=== PATIENT | female | born 1995 | race African-American/Black ===

== ENCOUNTER 2018-05-18 11:23 | Emergency (ER) | payer SELFPAY ==
--- NOTE | 2018-05-18 11:42 | ER Document Report ---
ED General - General Chief Complaint: Abdominal Pain Stated Complaint: STOMACH PAIN Time Seen by Provider: 05/18/18 11:36 Primary Care Provider: [facility] [Provider Group] - Follow up in 3-5 days ROMA CARDONA MD [Primary Care Provider] - Follow up in 3-5 days Notes: Patient is a 22-year-old female that presents to the emergency department for chief complaint of pelvic cramping and spotting. Patient reports that she was having some pelvic cramping over the past several days, and took a test on Friday of last week, and was positive, but she went to urgent care yesterday and her test was negative so she decided come the emergency department she is still having some cramping and spotting. She reports she had a short period earlier this month, which was odd for her is only 2 days, previously she had a normal. In the month of March. She denies having any dysuria, hematuria, or urinary frequency. Denies any fevers, chills, night sweats. She reports that she is had this a pelvic pain and cramping she currently rates the pain as a 6 out of 10. She has not taken any medications for this. Past Medical History: Denies chronic medical conditions Past Surgical History: Denies surgical history Social History: Admits to rare alcohol use, denies tobacco or illicit drug use. Family History: Reviewed and noncontributory for presenting illness Allergies: Reviewed, see documented allergy list. REVIEW OF SYSTEMS: Other than noted above, the 12 point review of systems was reviewed with the patient and were negative, all pertinent findings are included in the HPI. PHYSICAL EXAMINATION: Vital signs reviewed, nursing noted reviewed. GENERAL: Well-appearing, well-nourished and in no acute distress. HEAD: Atraumatic, normocephalic. EYES: Eyes appear normal, extraocular movements intact, sclera anicteric, conjunctiva are normal. ENT: nares patent, oropharynx clear without exudates. Moist mucous membranes. NECK: Normal range of motion, supple without lymphadenopathy LUNGS: Breath sounds clear to auscultation bilaterally and equal. No wheezes rales or rhonchi. HEART: Regular rate and rhythm without murmurs ABDOMEN: Soft, nontender, normoactive bowel sounds. No rebound, guarding, or rigidity. No masses appreciated. EXTREMITIES: Nontender, good range of motion, no pitting or edema. NEUROLOGICAL: No focal neurological deficits. Moves all extremities spontaneously Motor and sensory grossly intact on exam. PSYCH: Normal mood, normal affect. SKIN: Warm, Dry, normal turgor, no rashes or lesions noted on exposed skin TRAVEL OUTSIDE OF THE [place] IN LAST 30 DAYS: No - Related Data Allergies/Adverse Reactions: No Known Allergies Allergy (Unverified 05/18/18 11:29) Past Medical History - Social History Smoking Status: Never Smoker Chew tobacco use (# tins/day): No Frequency of alcohol use: Occasional Drug Abuse: None Family History: Reviewed & Not Pertinent Patient has suicidal ideation: No Patient has homicidal ideation: No Renal/ Medical History: Denies: Hx Peritoneal Dialysis Physical Exam - Vital signs Vitals: Temp Pulse Resp BP Pulse Ox 98.5 F 70 18 139/79 H 99 05/18/18 11:30 05/18/18 11:30 05/18/18 11:30 05/18/18 11:30 05/18/18 11:30 Course - Re-evaluation Re-evalutation: Patient seen and examined vital signs reviewed. Laboratory data and imaging were ordered as appropriate for the patient's presenting symptoms and complaint, with consideration of any critical or life threatening conditions that may be associated with their obtained history and exam as noted above. Patient was treated with Tylenol and Reglan for her nausea and pain Results were reviewed when available and demonstrated negative hCG testing, and negative ultrasound, good flow to the ovaries bilaterally The patient was re-evaluated and was stable Evaluation was most consistent with possible miscarriage, and spotting afterwards, her urinalysis was suggestive of a UTI, will treat with Keflex for 5 days. Results were discussed with the patient at this point, after careful consideration I feel that that patient can be discharged from the emergency department, the patient was educated treatments and reasons to return to the emergency department based on their presumed diagnosis as noted above, they were advised to followup with a primary care physician in 2-3 days. Patient was agreeable to plan of care. *Note is created using voice recognition software and may contain spelling, syntax or grammatical errors. Laboratory 05/18/18 05/18/18 05/18/18 11:50 12:02 12:02 Beta HCG, Quant < 2.39 Total Beta HCG NEGATIVE Urine Color YELLOW Urine Appearance SLIGHTLY-CLOUDY Urine pH 6.0 Ur Specific [place] 1.017 Urine Protein NEGATIVE Urine Glucose (UA) NEGATIVE Urine Ketones NEGATIVE Urine Blood NEGATIVE Urine Nitrite NEGATIVE Urine Bilirubin NEGATIVE Urine Urobilinogen 2.0 H Ur Leukocyte Esterase MODERATE H Urine WBC (Auto) 9 Urine RBC (Auto) 1 Urine Bacteria (Auto) TRACE Squamous Epi Cells Auto 10 Urine Mucus (Auto) MOD Urine Ascorbic Acid NEGATIVE Blood Type O POSITIVE Rhogam Indicated RHOGAM NOT INDICATED Obstetrics Ultrasound 05/18/18 11:42 IMPRESSION: There is no intrauterine gestation at this time. Follow-up as clinically indicated. - Vital Signs Vital signs: Temp Pulse Resp BP Pulse Ox 98.5 F 70 16 139/79 H 99 05/18/18 11:30 05/18/18 11:30 05/18/18 11:34 05/18/18 11:30 05/18/18 11:30 - Laboratory Laboratory results interpreted by me: 05/18/18 11:50 Urine Urobilinogen 2.0 H Ur Leukocyte Esterase MODERATE H Discharge - Discharge Clinical Impression: Pelvic cramping UTI (urinary tract infection) Qualifiers: Urinary tract infection type: site unspecified Hematuria presence: without hematuria Qualified Code(s): N39.0 - Urinary tract infection, site not specified Condition: Stable Disposition: HOME, SELF-CARE Instructions: Urinary Tract Infection ([facility]) Additional Instructions: Please complete the entire course of antibiotics, and please follow-up with an SNUFF BLENDER, referral has been given with your paperwork today. If your symptoms worsen or are not improving and over the next 7 days, you can always return to the emergency department. Prescriptions: Cephalexin Monohydrate [Keflex 500 mg Capsule] 500 mg PO BID 5 Days #10 capsule Referrals: ROMA CARDONA MD [Primary Care Provider] - Follow up in 3-5 days [facility] [Provider Group] - Follow up in 3-5 days
[2018-05-18] MEDS ORDERED: METOCLOPRAMIDE HCL 10 MG TABLET PO ONE (11:43)
[2018-05-18] MEDS ORDERED: ACETAMINOPHEN 325 MG TABLET PO ONE (11:43)
[2018-05-18 12:31] LABS: APPEARANCE,URINE SLIGHTLY-CLOUDY; BILIRUBIN,URINE NEGATIVE (NEGATIVE); COLOR,URINE YELLOW; GLUCOSE, URINE NEGATIVE (NEGATIVE); KETONES,URINE NEGATIVE (NEGATIVE); LEUKOCYTE ESTERASE,URINE MODERATE (NEGATIVE); NITRITE,URINE NEGATIVE (NEGATIVE); PROTEIN,URINE NEGATIVE (NEGATIVE); URINE SPECIFIC GRAVITY 1.017
--- NOTE | 2018-05-18 12:53 | RADIOLOGY REPORT (SQ) ---
EXAM DESCRIPTION: U/S OB TRANSVAGINAL W/O DOP COMPLETED DATE/TIME: 05/18/2018 12:45 pm REASON FOR STUDY: , spotting COMPARISON: None. TECHNIQUE: Transvaginal static and realtime grayscale images acquired of the pelvis. Additional gaby cted spectral and color Doppler images recorded. All images stored on PACs. bHCG: Pending CLINICAL DATES: LMP 04/13/2018. 5 weeks 0 days. LIMITATIONS: None. FINDINGS: No intrauterine gestation is present at this time. UTERUS: No masses or anomalies. 7.5 x 5.6 x 4 cm. CERVICAL LENGTH: 3.1 cm. Closed. RIGHT ADNEXA: Normal ovary with normal vascular flow. 4 x 3.2 x 3 cm. No adnexal free fluid. No adnexal masses. LEFT ADNEXA: Normal ovary with normal vascular flow. 3.5 x 2.3 x 1.7 cm. There is a 2.1 x 1.7 x 1.8 cm cyst. No adnexal free fluid. No adnexal masses. FREE FLUID: None. OTHER: Endometrium measures 3 mm. IMPRESSION: There is no intrauterine gestation at this time. Follow-up as clinically indicated. TECHNICAL DOCUMENTATION: JOB ID: [id number] [employer]- All Rights Reserved rev Reading location - IP/workstation name: [email or web address]
[2018-05-18 13:43] VITALS: BP 104/68
== END 2018-05-18 13:44 | disposition home or self-care (01) ==
LOC: ER 11:23
DX: N39.0 Urinary tract infection, site not specified (principal); R10.2 Pelvic and perineal pain
CPT/HCPCS: 36415; 76817; 81001; 84702; 86900; 86901; 87086; 99284

== ENCOUNTER 2018-07-01 12:48 | Emergency (ER) | payer OTHER ==
--- NOTE | 2018-07-01 13:57 | ER Document Report ---
ED General - General Chief Complaint: Abdominal Pain Stated Complaint: ABDOMINAL PAIN Time Seen by Provider: 07/01/18 13:51 Mode of Arrival: Ambulatory Information source: Patient Notes: Patient presents to the emergency department with complaints of severe abdominal pain that started while she is at work lasted approximately 30 minutes and went away. She denies fever vomiting diarrhea. She denies past medical history of injury Or chronic illness. She reports this happened to her one time and it went away. She reports the pain was 10 out of 10 will EMS picked her up but is now 3/5. TRAVEL OUTSIDE OF THE [place] IN LAST 30 DAYS: No - HPI Onset: Just prior to arrival Quality of pain: Achy Severity: Mild Pain Level: 3 Associated symptoms: None. denies: Diarrhea, Nausea, Vomiting Exacerbated by: Denies Relieved by: Denies Similar symptoms previously: No Recently seen / treated by doctor: No - Related Data Allergies/Adverse Reactions: No Known Allergies Allergy (Verified 07/01/18 12:50) Past Medical History - General Information source: Patient Last Menstrual Period: 05/26/18 - Social History Smoking Status: Never Smoker Cigarette use (# per day): No Frequency of alcohol use: Occasional Family History: Reviewed & Not Pertinent Patient has suicidal ideation: No Patient has homicidal ideation: No - Medical History Medical History: Negative Renal/ Medical History: Denies: Hx Peritoneal Dialysis Surgical Hx: Negative Review of Systems - Review of Systems Notes: Review HPI for review of systems., All other systems negative Physical Exam - Vital signs Vitals: Temp Pulse Resp BP Pulse Ox 98.3 F 71 20 115/61 98 07/01/18 12:56 07/01/18 12:56 07/01/18 12:56 07/01/18 12:56 07/01/18 12:56 - Notes Notes: PHYSICAL EXAMINATION: GENERAL: Well-appearing and in no acute distress HEAD: Atraumatic, normocephalic. EYES: Pupils equal round, extraocular movements intact, sclera anicteric, conjunctiva are normal. ENT: nares patent, oropharynx clear without exudates. Moist mucous membranes. NECK: Normal range of motion, supple without lymphadenopathy LUNGS: CTAB and equal. No wheezes rales or rhonchi. HEART: Regular rate and rhythm without murmurs ABDOMEN: Soft, no tenderness. No guarding, no rebound EXTREMITIES: Normal range of motion, no pitting edema. No cyanosis. NEUROLOGICAL: Cranial nerves grossly intact. Normal sensory/motor exams. PSYCH: Normal mood, normal affect. SKIN: Warm, Dry, normal turgor, no rashes or lesions noted Course - Re-evaluation Re-evalutation: 07/01/18 15:42 Labs unremarkable KUB shows mild gas. Patient instructed on Gas-X. Patient instructed on the importance of follow-up with primary care or return to the emergency department for further further symptoms she verbalized understanding. pt denies pain - Vital Signs Vital signs: Temp Pulse Resp BP Pulse Ox 99.0 F 52 L 19 139/58 H 98 07/01/18 15:56 07/01/18 15:56 07/01/18 15:56 07/01/18 15:56 07/01/18 15:56 - Laboratory Result Diagrams: 07/01/18 14:14 07/01/18 14:14 Laboratory results interpreted by me: 07/01/18 07/01/18 14:14 14:14 Glucose 72 L Urine Blood LARGE H Urine Urobilinogen 2.0 H Ur Leukocyte Esterase TRACE H - Diagnostic Test Radiology reviewed: Image reviewed, Reports reviewed - mildly gas Discharge - Discharge Clinical Impression: Abdominal gas pain Condition: Stable Disposition: HOME, SELF-CARE Instructions: Abdominal Pain ([facility]) Additional Instructions: *You have been evaluated for abdominal pain, gas *Take medication as directed *Follow up with a primary care provider within 3 days *Return to ED for worsening condition, changes, needs *Return to ED if not better in 24 hours Prescriptions: Simethicone [Gas-X] 125 mg PO ASDIR PRN #1 tab.chew PRN Reason: Forms: Return to Work
[2018-07-01 14:30] LABS: ABSOLUTE EOSINOPHILS # (AUTO) 0.1 10^3/uL (0.0-0.6); ABSOLUTE LYMPHOCYTES (AUTO) 2.5 10^3/uL (0.5-4.7); ABSOLUTE MONOCYTES (AUTO) 0.7 10^3/uL (0.1-1.4); ABSOLUTE NEUT (AUTO) 3.5 10^3/uL (1.7-8.2); BASOPHILS % (AUTO) 0.6 % (0-2); EOSINOPHILS % (AUTO) 1.3 % (0-6); HEMATOCRIT 40.1 % (36.0-47.0); HEMOGLOBIN 13.7 g/dL (12.0-15.5); LYMPHOCYTES % (AUTO) 36.2 % (13-45); MEAN CORPUSCULAR HEMOGLOBIN 31.6 pg (27.0-33.4); MEAN CORPUSCULAR HGB CONC 34.3 g/dL (32.0-36.0); MEAN CORPUSCULAR VOLUME 92 fl (80-97); MONOCYTES % (AUTO) 9.6 % (3-13); PLATELET COUNT 277 10^3/uL (150-450); RED BLOOD COUNT 4.36 10^6/uL (3.72-5.28); RED CELL DISTRIBUTION WIDTH 12.4 % (11.5-14.0); SEGMENTED NEUTROPHILS % (AUTO) 52.3 % (42-78); TOTAL CELLS COUNTED % (AUTO) 100 %; WHITE BLOOD COUNT 6.8 10^3/uL (4.0-10.5)
--- NOTE | 2018-07-01 14:34 | RADIOLOGY REPORT (SQ) ---
EXAM DESCRIPTION: KUB/ABDOMEN (SINGLE VIEW) COMPLETED DATE/TIME: 07/01/2018 2:22 pm REASON FOR STUDY: abd pain COMPARISON: None. NUMBER OF VIEWS: One view. TECHNIQUE: Supine radiographic image of the abdomen acquired. LIMITATIONS: None. FINDINGS: BOWEL GAS PATTERN: Mildly gas distended stomach. No additional evidence of pathologically dilated loops of bowel. Formed stool throughout the colon. CALCIFICATIONS: No suspicious calcifications. SOFT TISSUES: No gross mass or suggestion of organomegaly. HARDWARE: None in the abdomen. BONES: No acute fracture. No worrisome bone lesions. OTHER: No other significant finding. IMPRESSION: Mildly gas dilated stomach. Otherwise, unremarkable abdominal radiographs. TECHNICAL DOCUMENTATION: JOB ID: [id number] [employer]- All Rights Reserved Reading location - IP/workstation name: [email or web address]
[2018-07-01 14:50] LABS: ALANINE AMINOTRANSFERASE 26 U/L (9-52); ALBUMIN 4.3 g/dL (3.5-5.0); ALKALINE PHOSPHATASE 70 U/L (38-126); ANION GAP 10 (5-19); ASPARTATE AMINO TRANSFERASE 20 U/L (14-36); BILIRUBIN,DIRECT 0.2 mg/dL (0.0-0.4); BILIRUBIN,TOTAL 0.4 mg/dL (0.2-1.3); BLOOD UREA NITROGEN 9 mg/dL (7-20); CALCIUM 9.3 mg/dL (8.4-10.2); CARBON DIOXIDE 26 mmol/L (22-30); CHLORIDE 106 mmol/L (98-107); GLUCOSE 72 mg/dL (75-110); POTASSIUM 3.9 mmol/L (3.6-5.0); SODIUM 141.9 mmol/L (137-145); TOTAL PROTEIN 7.6 g/dL (6.3-8.2)
[2018-07-01 15:04] LABS: AMORPHOUS SEDIMENT,URINE TRACE /HPF; APPEARANCE,URINE CLOUDY; BILIRUBIN,URINE NEGATIVE (NEGATIVE); COLOR,URINE YELLOW; GLUCOSE, URINE NEGATIVE (NEGATIVE); KETONES,URINE NEGATIVE (NEGATIVE); LEUKOCYTE ESTERASE,URINE TRACE (NEGATIVE); NITRITE,URINE NEGATIVE (NEGATIVE); PROTEIN,URINE NEGATIVE (NEGATIVE); URINE SPECIFIC GRAVITY 1.023
[2018-07-01 15:59] VITALS: BP 139/58
== END 2018-07-01 15:58 | disposition home or self-care (01) ==
LOC: ER 12:48
DX: R14.1 Gas pain (principal)
CPT/HCPCS: 36415; 74018; 80053; 81001; 81025; 85025; 99284

== ENCOUNTER 2018-11-17 13:52 | Emergency (ER) | payer OTHER ==
--- NOTE | 2018-11-17 14:21 | ER Document Report ---
ED Medical Screen (RME) - General Chief Complaint: Lower Abdominal Pain Stated Complaint: ABDOMINAL PAIN Time Seen by Provider: 11/17/18 14:18 Mode of Arrival: Medic Information source: Patient Notes: 23-year-old female presents emergency department with complaints of lower abdominal pain that started at 5:00 this morning while she was at work. Denies fever vomiting diarrhea. Denies pain with void. Denies past medical history of chronic abdominal concerns. Denies trauma. Denies vaginal discharge. Lower abdomen pain to touch. Last bowel movement was couple days ago. I have greeted and performed a rapid initial assessment of this patient. A comprehensive ED assessment and evaluation of the patient, analysis of test results and completion of the medical decision making process will be conducted by additional ED providers. Dictation of this chart was performed using voice recognition software; therefore, there may be some unintended grammatical errors. TRAVEL OUTSIDE OF THE [place] IN LAST 30 DAYS: No - Related Data Allergies/Adverse Reactions: No Known Allergies Allergy (Verified 11/17/18 14:12) Past Medical History - Social History Chew tobacco use (# tins/day): No Frequency of alcohol use: Social Drug Abuse: None Renal/ Medical History: Denies: Hx Peritoneal Dialysis Physical Exam - Vital signs Vitals: Temp Pulse Resp BP Pulse Ox 98.0 F 84 20 121/61 98 11/17/18 14:03 11/17/18 14:03 11/17/18 14:03 11/17/18 14:03 11/17/18 14:03 Course - Vital Signs Vital signs: Temp Pulse Resp BP Pulse Ox 98.0 F 84 20 121/61 98 11/17/18 14:03 11/17/18 14:03 11/17/18 14:03 11/17/18 14:03 11/17/18 14:03
[2018-11-17 15:02] LABS: ABSOLUTE EOSINOPHILS # (AUTO) 0.1 10^3/uL (0.0-0.6); ABSOLUTE LYMPHOCYTES (AUTO) 2.8 10^3/uL (0.5-4.7); ABSOLUTE MONOCYTES (AUTO) 0.4 10^3/uL (0.1-1.4); ABSOLUTE NEUT (AUTO) 3.3 10^3/uL (1.7-8.2); BASOPHILS % (AUTO) 0.7 % (0-2); EOSINOPHILS % (AUTO) 0.9 % (0-6); HEMATOCRIT 38.4 % (36.0-47.0); HEMOGLOBIN 13.3 g/dL (12.0-15.5); LYMPHOCYTES % (AUTO) 42.2 % (13-45); MEAN CORPUSCULAR HEMOGLOBIN 31.5 pg (27.0-33.4); MEAN CORPUSCULAR HGB CONC 34.7 g/dL (32.0-36.0); MEAN CORPUSCULAR VOLUME 91 fl (80-97); MONOCYTES % (AUTO) 6.5 % (3-13); PLATELET COUNT 292 10^3/uL (150-450); RED BLOOD COUNT 4.22 10^6/uL (3.72-5.28); RED CELL DISTRIBUTION WIDTH 12.5 % (11.5-14.0); SEGMENTED NEUTROPHILS % (AUTO) 49.7 % (42-78); TOTAL CELLS COUNTED % (AUTO) 100 %; WHITE BLOOD COUNT 6.7 10^3/uL (4.0-10.5)
[2018-11-17 15:15] LABS: APPEARANCE,URINE SLIGHTLY-CLOUDY; BILIRUBIN,URINE NEGATIVE (NEGATIVE); COLOR,URINE YELLOW; GLUCOSE, URINE NEGATIVE (NEGATIVE); KETONES,URINE NEGATIVE (NEGATIVE); LEUKOCYTE ESTERASE,URINE SMALL (NEGATIVE); NITRITE,URINE NEGATIVE (NEGATIVE); PROTEIN,URINE NEGATIVE (NEGATIVE); URINE SPECIFIC GRAVITY 1.024
[2018-11-17 15:28] LABS: ALBUMIN 4.4 g/dL (3.5-5.0); ALKALINE PHOSPHATASE 71 U/L (38-126); ANION GAP 8 (5-19); ASPARTATE AMINO TRANSFERASE 20 U/L (14-36); BILIRUBIN,DIRECT 0.1 mg/dL (0.0-0.4); BILIRUBIN,TOTAL 0.4 mg/dL (0.2-1.3); BLOOD UREA NITROGEN 13 mg/dL (7-20); CALCIUM 9.6 mg/dL (8.4-10.2); CARBON DIOXIDE 28 mmol/L (22-30); CHLORIDE 104 mmol/L (98-107); GLUCOSE 91 mg/dL (75-110); POTASSIUM 4.1 mmol/L (3.6-5.0); TOTAL PROTEIN 7.7 g/dL (6.3-8.2)
--- NOTE | 2018-11-17 15:52 | RADIOLOGY REPORT (SQ) ---
EXAM DESCRIPTION: KUB/ABDOMEN (SINGLE VIEW) COMPLETED DATE/TIME: 11/17/2018 3:40 pm REASON FOR STUDY: abd pain COMPARISON: KUB from 07/01/2018. NUMBER OF VIEWS: One view. TECHNIQUE: Supine radiographic image of the abdomen acquired. LIMITATIONS: None. FINDINGS: BOWEL GAS PATTERN: Nonobstructive bowel gas pattern. There is no pneumatosis or portal ve nous gas. CALCIFICATIONS: No calcifications. SOFT TISSUES: No abnormality. HARDWARE: None in the abdomen. BONES: No acute findings. OTHER: No other finding. IMPRESSION: Nonobstructive bowel gas pattern. TECHNICAL DOCUMENTATION: JOB ID: [id number] [employer]- All Rights Reserved Reading location - IP/workstation name: [email or web address]
[2018-11-17] MEDS ORDERED: IBUPROFEN 800 MG TABLET PO ONE (16:26)
--- NOTE | 2018-11-17 16:27 | ER Document Report ---
HPI - HPI Patient complains to provider of: Lower pelvic pain Time Seen by Provider: 11/17/18 14:18 Onset: This morning Onset/Duration: Gradual Quality of pain: Achy Pain Level: 3 Context: Patient presents complaining of low pelvic pain since 5:00 this morning. Patien t denies any nausea vomiting or diarrhea. Patient denies any fever urinary symptoms vaginal bleeding or discharge. Associated Symptoms: Other - Lower pelvic pain. denies: Fever, Nausea, Vomiting Exacerbated by: Denies Relieved by: Denies Similar symptoms previously: No Recently seen / treated by doctor: No - ROS ROS below otherwise negative: Yes Systems Reviewed and Negative: Yes All other systems reviewed and negative - CONSTITUTIONAL Constitutional: DENIES: Fever - GASTROINTESTINAL Gastrointestinal: REPORTS: Abdominal Pain. DENIES: Nausea - URINARY Urinary: DENIES: Dysuria, Urgency, Frequency - REPRODUCTIVE LMP: nexplanon/ LMP April Reproductive: DENIES: :, Abnormal bleeding / discharge - MUSCULOSKELETAL Musculoskeletal: DENIES: Back Pain - DERM Skin Color: Normal Skin Problems: None Past Medical History - General Information source: Patient - Social History Smoking Status: Never Smoker Chew tobacco use (# tins/day): No Frequency of alcohol use: Social Drug Abuse: None Occupation: Call center Family History: Reviewed & Not Pertinent Patient has suicidal ideation: No Patient has homicidal ideation: No - Medical History Medical History: Negative Renal/ Medical History: Denies: Hx Peritoneal Dialysis Surgical Hx: Negative Vertical Provider Document - CONSTITUTIONAL Agree With Documented VS: Yes Exam Limitations: No Limitations General Appearance: WD/WN, No Apparent Distress - INFECTION CONTROL TRAVEL OUTSIDE OF THE [place] 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 negative: Adnexal Pain-Right, Adnexal Pain-Left - BACK Back: Normal Inspection. negative: CVA Tenderness-Right, CVA Tenderness-Left - MUSCULOSKELETAL/EXTREMETIES Musculoskeletal/Extremeties: ANGELITO MAR - NEURO Level of Consciousness: Awake, Alert, Appropriate Motor/Sensory: No Motor Deficit - DERM Integumentary: Warm, Dry, No Rash Course - Vital Signs Vital signs: Temp Pulse Resp BP Pulse Ox 98.0 F 84 20 121/61 98 11/17/18 14:03 11/17/18 14:03 11/17/18 14:03 11/17/18 14:03 11/17/18 14:03 - Laboratory Result Diagrams: 11/17/18 14:30 11/17/18 14:30 Laboratory results interpreted by me: 11/17/18 14:30 Urine Blood MODERATE H Urine Urobilinogen 2.0 H Ur Leukocyte Esterase SMALL H Urine Ascorbic Acid 40 H 11/17/18 17:46 Labs- Entire Visit 11/17/18 11/17/18 11/17/18 14:30 14:30 14:30 WBC 6.7 RBC 4.22 Hgb 13.3 Hct 38.4 MCV 91 MCH 31.5 MCHC 34.7 RDW 12.5 Plt Count 292 Lymph % (Auto) 42.2 [place] % (Auto) 6.5 Eos % (Auto) 0.9 Baso % (Auto) 0.7 Absolute Neuts (auto) 3.3 Absolute Lymphs (auto) 2.8 Absolute Monos (auto) 0.4 Absolute Eos (auto) 0.1 Absolute Basos (auto) 0.0 Seg Neutrophils % 49.7 Sodium 140.2 Potassium 4.1 Chloride 104 Carbon Dioxide 28 Anion Gap 8 BUN 13 Creatinine 0.84 Est GFR ( Amer) > 60 Est GFR (MDRD) Non-Af > 60 Glucose 91 Calcium 9.6 Total Bilirubin 0.4 Direct Bilirubin 0.1 Neonat Total Bilirubin Not Reportable Neonat Direct Bilirubin Not Reportable Neonat Indirect Bili Not Reportable AST 20 ALT 11 Alkaline Phosphatase 71 Total Protein 7.7 Albumin 4.4 Urine Color YELLOW Urine Appearance SLIGHTLY-CLOUDY Urine pH 6.0 Ur Specific [place] 1.024 Urine Protein NEGATIVE Urine Glucose (UA) NEGATIVE Urine Ketones NEGATIVE Urine Blood MODERATE H Urine Nitrite NEGATIVE Urine Bilirubin NEGATIVE Urine Urobilinogen 2.0 H Ur Leukocyte Esterase SMALL H Urine WBC (Auto) 10 Urine RBC (Auto) 6 Urine Bacteria (Auto) 1+ Squamous Epi Cells Auto 7 Urine Mucus (Auto) FEW Urine Ascorbic Acid 40 H Urine HCG, Qual NEGATIVE Bacteria (Wet Prep) Trichomonas (Wet Prep) Vaginal WBC Vaginal RBC Vaginal Yeast 11/17/18 16:51 WBC RBC Hgb Hct MCV MCH MCHC RDW Plt Count Lymph % (Auto) [place] % (Auto) Eos % (Auto) Baso % (Auto) Absolute Neuts (auto) Absolute Lymphs (auto) Absolute Monos (auto) Absolute Eos (auto) Absolute Basos (auto) Seg Neutrophils % Sodium Potassium Chloride Carbon Dioxide Anion Gap BUN Creatinine Est GFR ( Amer) Est GFR (MDRD) Non-Af Glucose Calcium Total Bilirubin Direct Bilirubin Neonat Total Bilirubin Neonat Direct Bilirubin Neonat Indirect Bili AST ALT Alkaline Phosphatase Total Protein Albumin Urine Color Urine Appearance Urine pH Ur Specific [place] Urine Protein Urine Glucose (UA) Urine Ketones Urine Blood Urine Nitrite Urine Bilirubin Urine Urobilinogen Ur Leukocyte Esterase Urine WBC (Auto) Urine RBC (Auto) Urine Bacteria (Auto) Squamous Epi Cells Auto Urine Mucus (Auto) Urine Ascorbic Acid Urine HCG, Qual Bacteria (Wet Prep) 3+ BACTERIA SEEN Trichomonas (Wet Prep) NO TRICHOMONAS SEEN Vaginal WBC FEW WBCS SEEN Vaginal RBC FEW RBCS SEEN Vaginal Yeast BUDDING YEAST SEEN Discharge - Discharge Clinical Impression: PID (acute pelvic inflammatory disease), Pelvic pain UTI (urinary tract infection) Qualifiers: Urinary tract infection type: site unspecified Hematuria presence: with hematuria Qualified Code(s): N39.0 - Urinary tract infection, site not specified Condition: Stable Disposition: HOME, SELF-CARE Instructions: Cephalexin ([facility]), Doxycycline ([facility]), Metronidazole ([facility]), Urinary Tract Infection ([facility]), Vaginal Yeast Infection ([facility]) Additional Instructions: Return immediately for any new or worsening symptoms Followup with your primary care provider, call tomorrow to make a followup appointment Urine culture is pending, will call if you need any different treatment Prescriptions: Fluconazole [Diflucan] 150 mg PO ONCE PRN #1 tablet PRN Reason: Doxycycline Hyclate 100 mg PO BID #28 capsule Metronidazole [Flagyl 500 mg Tablet] 500 mg PO BID #14 tablet Cephalexin Monohydrate [Keflex 500 mg Capsule] 500 mg PO BID 5 Days capsule Forms: Return to Work Referrals: [facility] [Provider Group] - Follow up as needed
[2018-11-17] MEDS ORDERED: CEFTRIAXONE INJ 1000 MG VIAL IM ONE (16:54)
[2018-11-17] MEDS ORDERED: DOXYCYCLINE HYCLATE 100 MG TABLET PO ONE (16:54)
[2018-11-17] MEDS ORDERED: LIDOCAINE 1% INJ (10 MG/ML) 10 ML MDV INJ ONE (16:56)
[2018-11-17 17:08] LABS: BACTERIA (WET MOUNT) 3+ BACTERIA SEEN; RBCS (WET MOUNT) FEW RBCS SEEN; T.VAGINALIS (WET MOUNT) NO TRICHOMONAS SEEN; WBCS (WET MOUNT) FEW WBCS SEEN; YEAST (WET MOUNT) BUDDING YEAST SEEN
[2018-11-17 17:58] VITALS: BP 120/74
[2018-11-17 18:38] LABS: CHLAM PCR DETECTED (NOT DETECT)
== END 2018-11-17 17:59 | disposition home or self-care (01) ==
LOC: ER 13:52
DX: N73.9 Female pelvic inflammatory disease, unspecified (principal); N39.0 Urinary tract infection, site not specified; R31.9 Hematuria, unspecified; R10.2 Pelvic and perineal pain
CPT/HCPCS: 99284; 96372; 36415; 87086; 87210; 85025; 81025; 80053; 81001; 87491; 87591; 74018; J0696

== ENCOUNTER 2019-12-15 16:33 | Emergency (ER) | payer OTHER ==
[2019-12-15] MEDS ORDERED: HYDROCODONE/ACETAMINOPHEN 5-325 MG TABLET PO ONE (17:33)
[2019-12-15] MEDS ORDERED: LIDOCAINE 1% INJ-PF (10 MG/ML) 30 ML SDV INJ ONE ×2 (17:33→20:18)
--- NOTE | 2019-12-15 17:43 | ER Document Report ---
ED Medical Screen (RME) - General Chief Complaint: Abscess Stated Complaint: ABSCESS/BACK TRAVEL OUTSIDE OF THE [place] IN LAST 30 DAYS: No - HPI Notes: 12/15/19 17:42 24-year-old female to the emergency department with complaints of a pilonidal abscess. She states it started about 3 weeks ago and has gotten progressively worse. She was seen at [facility] over the weekend and then referred to general surgery. She was seen at [facility] today and sent over for incision and drainage by Dr. De La Cruz. Per charge nurse, Dr. De La Cruz states that the abscess should be drained and patient should be put on oral antibiotics and follow-up in his clinic in 1 week. Patient admits to some subjective fevers and chills. Admits to some slight nausea. Hurts very much to sit down. She states that she has had this about 3 other times. I performed a brief medical screening exam on the patient determined that the patient needs further evaluation and management by main side provider. I have placed initial orders to help expedite care. - Related Data Allergies/Adverse Reactions: No Known Allergies Allergy (Verified 11/17/18 14:12) Past Medical History Renal/ Medical History: Denies: Hx Peritoneal Dialysis Physical Exam - Vital signs Vitals: Temp Pulse Resp BP Pulse Ox 99.9 F 117 H 16 118/71 98 12/15/19 16:54 12/15/19 16:54 12/15/19 16:54 12/15/19 16:54 12/15/19 16:54 Course - Vital Signs Vital signs: Temp Pulse Resp BP Pulse Ox 99.9 F 117 H 16 118/71 98 12/15/19 16:54 12/15/19 16:54 12/15/19 16:54 12/15/19 16:54 12/15/19 16:54
--- NOTE | 2019-12-15 19:39 | ER Document Report ---
ED Skin Rash/Insect Bite/Abscs - General Chief Complaint: Abscess Stated Complaint: ABSCESS/BACK Time Seen by Provider: 12/15/19 19:38 Mode of Arrival: Ambulatory Information source: Patient Notes: ED Medical Screen ([email or web address]) - General Chief Complaint: Abscess Stated Complaint: ABSCESS/BACK TRAVEL OUTSIDE OF THE [place] IN LAST 30 DAYS: No - HPI Notes: 12/15/19 17:42 24-year-old female to the emergency department with complaints of a pilonidal abscess. She states it started about 3 weeks ago and has gotten progressively worse. She was seen at [facility] over the weekend and then referred to general surgery. She was seen at [facility] today and sent over for incision and drainage by Dr. De La Cruz. Per charge nurse, Dr. De La Cruz states that the abscess should be drained and patient should be put on oral antibiotics and follow-up in his clinic in 1 week. Patient admits to some subjective fevers and chills. Admits to some slight nausea. Hurts very much to sit down. She states that she has had this about 3 other times. I performed a brief medical screening exam on the patient determined that the patient needs further evaluation and management by main side provider. I have placed initial orders to help expedite care. MY NOTES 24-year-old black female arrives with chief complaint of pilonidal cyst abscess. This occurred 3 weeks ago and has worsened over the weekend. She was seen at [facility] and then referred to [facility] for I&D. Patient saw Dr. De La Cruz today who pushed on it and the patient spun around and hit him and he advised taking the antibiotics and seeing him next week for incision and drainage. Patient is running low-grade temperature 100. I spoke with patient about this case. I also spoke with Dr. Alford about this case and I will performed the incision and drainage. Patient has been taking doxycycline and Zofran. Patient has had initial incision and drainage and [facility] 2017 and then [facility] in 2019. TRAVEL OUTSIDE OF THE [place] IN LAST 30 DAYS: No - HPI Patient complains to provider of: Tender/swollen area Onset: Other - x 3 weeks Severity: Moderate Pain Level: 2 Skin Character: Abscess Skin Temperature: Warm Quality of rash: Painful Identify cause: Yes - Related Data Allergies/Adverse Reactions: No Known Allergies Allergy (Verified 11/17/18 14:12) Past Medical History - General Information source: Patient, Relative - Social History Smoking Status: Never Smoker Cigarette use (# per day): No Chew tobacco use (# tins/day): No Smoking Education Provided: No Frequency of alcohol use: Occasional Drug Abuse: None Lives with: Family Family History: Reviewed & Not Pertinent Patient has suicidal ideation: No Patient has homicidal ideation: No Renal/ Medical History: Denies: Hx Peritoneal Dialysis Review of Systems - Review of Systems Constitutional: See HPI, Fever EENT: No symptoms reported Cardiovascular: No symptoms reported Respiratory: No symptoms reported Gastrointestinal: No symptoms reported Genitourinary: No symptoms reported Female Genitourinary: No symptoms reported Musculoskeletal: No symptoms reported Skin: No symptoms reported, See HPI, Lumps - Pilonidal abscess approximately 5 cm diameter with midline surgical scar that is well-healed over 1 year. Hematologic/Lymphatic: No symptoms reported Neurological/Psychological: No symptoms reported Physical Exam - Vital signs Vitals: Temp Pulse Resp BP Pulse Ox 99.9 F 117 H 16 118/71 98 12/15/19 16:54 12/15/19 16:54 12/15/19 16:54 12/15/19 16:54 12/15/19 16:54 Interpretation: Tachycardic, Febrile - General General appearance: Appears well, Alert - HEENT Head: Normocephalic, Atraumatic Eyes: Normal Pupils: PERRL - Respiratory Respiratory status: No respiratory distress Chest status: Nontender Breath sounds: Normal Chest palpation: Normal - Cardiovascular Rhythm: Regular Heart sounds: Normal auscultation Murmur: No - Abdominal Inspection: Normal Distension: No distension Bowel sounds: Normal Tenderness: Nontender Organomegaly: No organomegaly - Rectal Tenderness: Yes - I was with Andreina SCHAEFFER female - Genitourinary External exam: Normal - With Andreina SCHAEFFER female - Back Back: Normal, Nontender - Extremities General upper extremity: Normal inspection, Nontender, Normal color, Normal ROM, Normal temperature General lower extremity: Normal inspection, Nontender, Normal color, Normal ROM, Normal temperature, Normal weight bearing. No: Dulce Maria's sign - Neurological Neuro grossly intact: Yes Cognition: Normal Orientation: AAOx4 [place] Coma Scale Eye Opening: Spontaneous [place] Coma Scale Verbal: Oriented [place] Coma Scale Motor: Obeys Commands [place] Coma Scale Total: 15 Speech: Normal Motor strength normal: LUE, RUE, LLE, RLE Sensory: Normal - Psychological Associated symptoms: Normal affect, Normal mood - Skin Skin Temperature: Warm Skin Moisture: Dry Skin Color: Other - Pilonidal abscess approximately 5 cm diameter with midline s urgical scar that is well-healed over 1 year. Course - Vital Signs Vital signs: Temp Pulse Resp BP Pulse Ox 99.9 F 117 H 16 118/71 98 12/15/19 16:54 12/15/19 16:54 12/15/19 16:54 12/15/19 16:54 12/15/19 16:54 Procedures - Incision and Drainage Buttock Time completed: 21:30 Type: Simple Anesthetic type: 1% Lidocaine mL's of anesthetic: 10 I&D procedure: Shurclens applied, Iodoform packing placed Incision Method: Incision made by scalpel Amount/type of drainage: 75 ml purulent drainage jimenez in color Critical Care Note - Critical Care Note Comments: Patient tolerated incision and drainage procedure well. She woke shortly after procedure was done. Antibiotics were given IV per Andreina SCHAEFFER. Home medicines were provided by Andreina SCHAEFFER as well. Discharge - Discharge Clinical Impression: Encounter for incision and drainage procedure, Pilonidal cyst with abscess Condition: Good Disposition: HOME, SELF-CARE Instructions: Trimethoprim-Sulfa ([facility]), Cephalexin ([facility]) Additional Instructions: Follow-up with Dr. Alford or Dr. De La Cruz surgeons in their office tomorrow or next day. return to ER for surgical emergencies; keep wound clean and dry. Take medications as directed. Hold on doxycycline for now and instead take Keflex and Bactrim. Encourage fluids take nausea medicine and pain medicine as needed. Prescriptions: Sulfamethoxazole/Trimethoprim [Bactrim Ds Tablet] 1 tab PO BID #20 tablet Cephalexin Monohydrate [Keflex 500 mg Capsule] 500 mg PO BID 5 Days #20 capsule Forms: Return to Work
[2019-12-15] MEDS ORDERED: NORMAL SALINE 1000 ML 1,000 ML IV ONE (19:59)
[2019-12-15] MEDS ORDERED: PROPOFOL INJ 200 MG/20 ML VIAL IV ONE ×2 (19:59→21:36)
[2019-12-15] MEDS ORDERED: KETAMINE HCL INJ 500 MG/10 ML VIAL IV ONE (20:00)
[2019-12-15] MEDS ORDERED: CEFTRIAXONE INJ 1000 MG VIAL IV ONE (20:01)
[2019-12-15] MEDS ORDERED: METRONIDAZOLE 500 MG/NS RTU 500 MG/100 ML RTUPB IV SCH (20:30)
[2019-12-15] MEDS ORDERED: HYDROCODONE/ACETAMINOPHEN 5-325 MG (6 TAB/ER DISP) PO PRN (21:35)
[2019-12-15] MEDS ORDERED: ONDANSETRON ODT 4 MG TAB (6 TAB/ER DISP) PO PRN (21:36)
[2019-12-15 23:55] VITALS: BP 110/62
[2019-12-16 00:15] LABS: HEMATOCRIT 30.9 % (36.0-47.0); HEMOGLOBIN 10.9 g/dL (12.0-15.5); MEAN CORPUSCULAR HGB CONC 35.3 g/dL (32.0-36.0); MEAN CORPUSCULAR VOLUME 88 fl (80-97); PLATELET COUNT 445 10^3/uL (150-450); RED BLOOD COUNT 3.51 10^6/uL (3.72-5.28); RED CELL DISTRIBUTION WIDTH 11.8 % (11.5-14.0)
[2019-12-16 00:30] LABS: ABSOLUTE LYMPHOCYTES# (MANUAL) 4.1 10^3/uL (0.5-4.7); ABSOLUTE MONOCYTES # (MANUAL) 1.2 10^3/uL (0.1-1.4); BASOPHILS % (MANUAL) 0 % (0-2); EOSINOPHILS % (MANUAL) 1 % (0-6); LYMPHOCYTES % (MANUAL) 27 % (13-45); MONOCYTES % (MANUAL) 8 % (3-13); SEGMENTED NEUTROPHILS % (MAN) 64 % (42-78); TOTAL CELLS COUNTED 100
[2019-12-16 00:35] LABS: PLATELET COMMENT ADEQUATE
[2019-12-16 00:44] LABS: ALBUMIN 3.2 g/dL (3.5-5.0); ALKALINE PHOSPHATASE 71 U/L (38-126); ANION GAP 9 (5-19); ASPARTATE AMINO TRANSFERASE 15 U/L (14-36); BILIRUBIN,DIRECT 0.4 mg/dL (0.0-0.4); BILIRUBIN,TOTAL 0.7 mg/dL (0.2-1.3); BLOOD UREA NITROGEN 6 mg/dL (7-20); CALCIUM 8.3 mg/dL (8.4-10.2); CARBON DIOXIDE 25 mmol/L (22-30); CHLORIDE 103 mmol/L (98-107); GLUCOSE 91 mg/dL (75-110); POTASSIUM 3.5 mmol/L (3.6-5.0); TOTAL PROTEIN 6.4 g/dL (6.3-8.2)
== END 2019-12-15 23:55 | disposition home or self-care (01) ==
LOC: ER 16:33
DX: L05.01 Pilonidal cyst with abscess (principal); R50.9 Fever, unspecified; R00.0 Tachycardia, unspecified
CPT/HCPCS: 99284; 96361; 99152; 96365; 96368; 36415; 87070; 87205; 85025; 87075; 80053; 10080; J3490 ×3; J0696; J7030; J2704; 87077

== ENCOUNTER 2019-12-22 12:19 | Day surgery (SDC) | payer OTHER ==
[~2019-12-22 12:19] MED LIST: CEFAZOLIN 2 GM/D5W RTU 2 GM/50 ML RTUPB IV ONE; CEFAZOLIN 2 GM/D5W RTU 2 GM/50 ML RTUPB IV PRN; DEXAMETHASONE SOD PHOSPHATE INJ 4 MG/1 ML VIAL ONE; FENTANYL CITRATE INJ/PF 100 MCG/2 ML AMPUL ONE; KETOROLAC TROMETHAMINE 60 MG/2 ML SDV ONE; MIDAZOLAM 2 MG/2 ML INJ ONE; ONDANSETRON HCL INJ/PF 4 MG/2 ML SDV ONE; PROPOFOL INJ 200 MG/20 ML VIAL IV ONE
[2019-12-22] MEDS ORDERED: FENTANYL CITRATE INJ/PF 100 MCG/2 ML AMPUL ONE (16:08)
[2019-12-22] MEDS ORDERED: FENTANYL CITRATE INJ/PF 100 MCG/2 ML AMPUL IV PRN ×3 (16:52)
[2019-12-22] MEDS ORDERED: DIPHENHYDRAMINE HCL 50 MG/ML VIAL IV PRN (16:52)
[2019-12-22] MEDS ORDERED: MEPERIDINE HCL/PF INJ 25 MG/1 ML DISP.SYRIN IV PRN (16:52)
[2019-12-22] MEDS ORDERED: MORPHINE SULFATE 10 MG/ML INJ IV PRN (16:52)
[2019-12-22] MEDS ORDERED: ONDANSETRON HCL INJ/PF 4 MG/2 ML SDV IV PRN (16:52)
[2019-12-22] MEDS ORDERED: LIDOCAINE 1%/EPINEPHRINE INJ 20 ML VIAL ONE (16:52)
--- NOTE | 2019-12-22 17:16 | Operative Report ---
Nonrecallable Operative Report DATE OF SURGERY: 12/22/19 PREOPERATIVE DIAGNOSIS: Infected pilonidal cyst POSTOPERATIVE DIAGNOSIS: Infected pilonidal cyst OPERATION: Incision and drainage of infected pilonidal cyst abscess SURGEON: DELMER CROWELL ANESTHESIA: GA TISSUE REMOVED OR ALTERED: Skin from the buttock COMPLICATIONS: None ESTIMATED BLOOD LOSS: 10 cc INTRAOPERATIVE FINDINGS: See note PROCEDURE: Procedure note; the patient was brought to the operating room awake alert stable condition placed on the operating table in a right lateral decubitus position. After adequate prep and drape and site verification the procedure commenced. Patient had an infected pilonidal cyst with a large subcutaneous abscess it was pointing at buttock cleft a elliptical incision was made just above the buttock cleft about 4 cm long by 2 cm wide dissection was carried out through subcutaneous tissue with Bovie cautery was markedly thickened tissue in the buttock cleft and an incision at the mid made down to the presacral fascia to gain access to a fairly large abscess cavity about 4 to 6 cm in diameter drained a large amount of purulent fluid and the loculations were digitalized. The wound was left open and irrigated copiously with normal saline suctioned dry until clear and then packed with a Betadine soaked sponge. This completed the procedure. A sterile dressing was applied. Estimated blood loss was less than 10 cc. Sponge needle counts were correct x2
--- NOTE | 2019-12-22 17:21 | Discharge Summary ---
Discharge Summary (SDC) - Discharge Final Diagnosis: Infected pilonidal cyst Date of Surgery: 12/22/19 Discharge Date: 12/22/19 Condition: Good Treatment or Instructions: Patient to remove Betadine packing tomorrow in the shower and then irrigate gently the buttock cleft with a hand-held shower head patient's mother has been instructed. After irrigating the wound she can put a dry gauze over the incision site. Prescriptions: Hydrocodone/Acetaminophen [[place] 10-325 mg Tablet] 1 tab PO Q6HP PRN #20 tablet PRN Reason: Discharge Activity: Activity As Tolerated Report the Following to Your Physician Immediately: Fever over 101 Degrees, Unusual Bleeding
[2019-12-22 19:53] VITALS: BP 104/57
== END 2019-12-22 19:08 | disposition home or self-care (01) ==
LOC: OROUT 12:19
PROVIDERS: ATTEND Surgery
DX: L05.01 Pilonidal cyst with abscess (principal); Z03.818 Encounter for observation for suspected exposure to other biological agents ruled out
CPT/HCPCS: 87070; 87205; 87635; 81025; 10080; J2250; J1100; J1885; J3010; J3490; J2405; J2704; J0690; C9803; 87075